=== PATIENT | female | born 1950 | race African-American/Black ===

== ENCOUNTER 2016-04-20 16:36 | Emergency (ER) | payer OTHER, MEDICAID ==
[~2016-04-20] VITALS: Ht 165.1 cm; Wt 50.0 kg
[~2016-04-20 16:36] MED LIST: ASPI1TAB69 PO; ATOR40TA16 PO; CARV12.52 PO; D32000TA PO; ERYT250C12 PO; ESTR42.5V PV; FERR325T PO; GLIM2TAB PO; GLUCOMTESTSTRIPS SQ; HYDR-3534 PO; LANTUS2P SQ; LYRI150C PO; ONETKIT10 SQ; ONETMIS7 SQ/IV; PANT40TA3 PO; PERI8.6T PO
[2016-04-20 16:37] VITALS: BP 198/89; PULSE 84; RESP 16; TEMP 98.3; O2SAT 95
[2016-04-20] MEDS ORDERED: SODIUM CHLOR 0.9% 1000 ML INJ 1,000 ML IV SCH (17:25)
--- NOTE | 2016-04-20 17:27 | PD ---
HPI Chief Complaint: Abdominal Pain Time Seen by Provider: 17:20 Travel History International Travel<30 days: No Contact w/Intl Traveler<30days: No Traveled to known affect area: No History of Present Illness HPI This is a 65-year-old female who has a history of gastroparesis and ulcers who presents to the emergency department with intermittent epigastric pain, sharp, burning, that's been worse today associated with some nausea and a feeling like she has to throw up but can't. She denies any diarrhea or constipation, denies any fevers and chills, and says her symptoms have been going on for a while but are worse today. She wasn't sure if her ulcers were flaring upper this was her gastroparesis. She says she takes erythromycin for her gastroparesis but has not been helping. PFSH Past Medical History Hx Anticoagulant Therapy: Yes Cardiac Catheterization: Yes (STENTS X 31 MARCH 2010) Cardiovascular Problems: Yes High Cholesterol: Yes Cerebrovascular Accident: Yes Diabetes: Yes Diminished Hearing: No Hypertension: Yes Myocardial Infarction: Yes (2010) Menopausal: Yes Past Surgical History Body Medical Devices: CORONARY STENTS X 2 Cardiac Surgery: Yes (2 stents) Coronary Stent: Yes Eye Surgery: Yes (BILAT CATARACT) Social History Alcohol Use: No Tobacco Use: Yes (4 CIG DAILY) Substance Use: No Allergies-Medications (Allergen,Severity, Reaction): Coded Allergies: Albiglutide (Verified Allergy, Severe, SICK TO STOMACH, 04/10/16) Insulins (Verified Allergy, Severe, 04/10/16) HYPOGLYCEMIA WITH NOVOLOG, PLEASE AVOID Cipro (Verified Allergy, Intermediate, RASH, 04/10/16) Metformin (Verified Adverse Reaction, Severe, N/V, 04/10/16) Lisinopril (Verified Adverse Reaction, Unknown, COUGH, 04/10/16) Reported Meds & Prescriptions Reported Meds & Active Scripts Active Erythromycin (Erythromycin Base) 250 Mg Cap 250 Mg PO TIDAC Glimepiride 2 Mg Tab 2 Mg PO BIDAC Lantus Inj (Insulin Glargine) 1,000 Unit/10 Ml Vial 10 Units SQ BID Carvedilol 12.5 Mg Tab 12.5 Mg PO BID Lyrica (Pregabalin) 150 Mg Cap 150 Mg PO HS Yue-Colace (Sennosides-Docusate Sodium) 8.6-50 Mg Tab 1 Tab PO BID Pantoprazole (Pantoprazole Sodium) 40 Mg Tab 40 Mg PO BID Ferrous Sulfate 325 Mg Tab 325 Mg PO BID Aspirin 81 Mg Tabdr 81 Mg PO DAILY Lortab (Hydrocodone-Acetaminophen) 7.5-325 Mg Tab 1 Tab PO Q6H PRN Reported Vitamin D3 (Cholecalciferol) 5,000 Unit Cap 5,000 Units PO WEEKLY Estrace Vaginal (Estradiol) 0.01% Cream 1 Appl PV HS Review of Systems Except as stated in HPI: all other systems reviewed are Neg Physical Exam Narrative GENERAL: Well-nourished, well-developed patient. SKIN: Warm and dry. HEAD: Normocephalic. EYES: No scleral icterus. No injection or drainage. NECK: Supple, trachea midline. CARDIOVASCULAR: Regular rate and rhythm without murmurs. RESPIRATORY: Breath sounds equal bilaterally. No accessory muscle use. GASTROINTESTINAL: Abdomen soft, tender to palpation in the epigastrium with no rebound or guarding. MUSCULOSKELETAL: No cyanosis, or edema. Data Data Last Documented VS Vital Signs Date Time Temp Pulse Resp B/P Pulse Ox O2 Delivery O2 Flow Rate FiO2 04/20/16 19:01 65 20 204/98 97 04/20/16 18:38 Room Air 04/20/16 17:58 2 04/20/16 16:37 98.3 Orders Complete Blood Count With Diff (04/20/16 17:25) Comprehensive Metabolic Panel (04/20/16 17:25) Lipase (04/20/16 17:25) Urinalysis - C+S If Indicated (04/20/16 17:25) Iv Access Insert/Monitor (04/20/16 17:25) Ecg Monitoring (04/20/16 17:25) Oximetry (04/20/16 17:25) Sodium Chlor 0.9% 1000 Ml Inj (Ns 1000 M (04/20/16 17:25) Sodium Chloride 0.9% Flush (Ns Flush) (04/20/16 17:30) Al-Mag Hy-Si 40-40-4 Mg/Ml Liq (Mag-Al P (04/20/16 17:30) Lidocaine 2% Viscous (Xylocaine 2% Visco (04/20/16 17:30) Igzcc-Iltssg-Xyxepb-Pb Liq ( Liq (04/20/16 17:30) Pantoprazole Inj (Protonix Inj) (04/20/16 17:30) Metoclopramide Inj (Reglan Inj) (04/20/16 17:30) Urine Culture (04/20/16 18:39) Carvedilol (Coreg) (04/20/16 19:15) Labs Laboratory Tests Test 04/20/16 04/20/16 18:00 18:39 White Blood Count 8.3 TH/MM3 Red Blood Count 5.05 MIL/MM3 Hemoglobin 13.9 GM/DL Hematocrit 42.5 % Mean Corpuscular Volume 84.2 FL Mean Corpuscular Hemoglobin 27.5 PG Mean Corpuscular Hemoglobin 32.6 % Concent Red Cell Distribution Width 15.1 % Platelet Count 237 TH/MM3 Mean Platelet Volume 9.9 FL Neutrophils (%) (Auto) 56.1 % Lymphocytes (%) (Auto) 33.9 % Monocytes (%) (Auto) 7.6 % Eosinophils (%) (Auto) 1.6 % Basophils (%) (Auto) 0.8 % Neutrophils # (Auto) 4.6 TH/MM3 Lymphocytes # (Auto) 2.8 TH/MM3 Monocytes # (Auto) 0.6 TH/MM3 Eosinophils # (Auto) 0.1 TH/MM3 Basophils # (Auto) 0.1 TH/MM3 CBC Comment DIFF FINAL Differential Comment Sodium Level 136 MEQ/L Potassium Level 4.1 MEQ/L Chloride Level 99 MEQ/L Carbon Dioxide Level 28.7 MEQ/L Anion Gap 8 MEQ/L Blood Urea Nitrogen 8 MG/DL Creatinine 0.83 MG/DL Estimat Glomerular Filtration 83 ML/MIN Rate Random Glucose 308 MG/DL Calcium Level 8.9 MG/DL Total Bilirubin 0.3 MG/DL Aspartate Amino Transf 14 U/L (AST/SGOT) Alanine Aminotransferase 12 U/L (ALT/SGPT) Alkaline Phosphatase 144 U/L Total Protein 7.7 GM/DL Albumin 3.3 GM/DL Lipase 65 U/L Urine Color YELLOW Urine Turbidity HAZY Urine pH 5.5 Urine Specific [place] 1.022 Urine Protein 30 mg/dL Urine Glucose (UA) 1000 mg/dL Urine Ketones 10 mg/dL Urine Occult Blood SMALL Urine Nitrite NEG Urine Bilirubin NEG Urine Urobilinogen 2.0 MG/DL Urine Leukocyte Esterase SMALL Urine RBC 1 /hpf Urine WBC 4 /hpf Urine Squamous Epithelial 2 /hpf Cells Urine Bacteria MOD /hpf Urine Hyaline Casts 3 /lpf Urine Mucus MANY /lpf Microscopic Urinalysis Comment CULTURE INDICATED MDM Medical Decision Making Medical Screen Exam Complete: Yes Emergency Medical Condition: Yes Interpretation(s) Afebrile, no tachycardia, hypertensive No leukocytosis Moderate hyperglycemia Urinalysis: Some ketones, moderate bacteria Differential Diagnosis Peptic ulcer disease, gastritis, pancreatitis, cholecystitis, cholelithiasis Narrative Course This is a 65-year-old female with a history of gastroparesis and peptic ulcer disease who presents to the emergency department with epigastric discomfort. Patient symptoms are consistent with peptic ulcer disease. She does not appear toxic and has no peritoneal signs. Labs were obtained which were reassuring. Patient feels much better after a GI cocktail and her symptoms have completely resolved. I think it's reasonable to add sucralfate to the patient's medication regimen.. Patient will be discharged home. Diagnosis Primary Impression: Gastric ulcer Qualified Code: K25.3 - Acute gastric ulcer without hemorrhage or perforation Patient Instructions: General Instructions Additional Instructions: If you develop severe or worsening abdominal pain, fever>100.4, persistent vomiting or inability to eat or drink return to the emergency department immediately. Follow up with your primary care physician in 1-2 days for a check-up. Med/Other Pt SpecificInfo: Prescription(s) given Scripts Sucralfate 1 Gm Tab1 Gm PO TID #90 TAB Ref 0 on empty stomach Prov:Gail Aviles MD 04/20/16 Disposition: 01 DISCHARGE HOME Condition: Stable Gail Aviles MD Apr 20, 2016 17:27
[2016-04-20] MEDS ORDERED: LIDOCAINE VISCOUS 2% SOLN 15 ML UDC SWISH-SWAL ONE (17:30)
[2016-04-20] MEDS ORDERED: SODIUM CHLORIDE 0.9% FLUSH 5 ML FLUSH IVF PRN (17:30)
[2016-04-20] MEDS ORDERED: ATROPINE/SCOPOLAM/HYOSCYAM/PB ELIXIR 10 ML CUP PO ONE (17:30)
[2016-04-20] MEDS ORDERED: PANTOPRAZOLE SODIUM 40 MG VIAL IV PUSH ONE (17:30)
[2016-04-20] MEDS ORDERED: ALUMINUM/MAGNESIUM/SIMETH 30 ML CUP PO ONE (17:30)
[2016-04-20] MEDS ORDERED: METOCLOPRAMIDE HCL 10 MG/2 ML VIAL IV PUSH ONE (17:30)
[2016-04-20 17:58] VITALS: O2SAT 97
[2016-04-20] MEDS ORDERED: ESTR42.5V PV (18:05)
[2016-04-20 18:07] LABS: AUTOMATED NEUTROPHIL # 4.6 TH/MM3 (1.8-7.7); BASOPHIL # 0.1 TH/MM3 (0-0.2); BASOPHIL % 0.8 % (0.0-2.0); EOSINOPHIL # 0.1 TH/MM3 (0-0.4); EOSINOPHIL % 1.6 % (0.0-4.0); HEMATOCRIT 42.5 % (35.0-46.0); HEMO FLAGS DIFF FINAL; LYMPH % 33.9 % (9.0-44.0); LYMPHOCYTE # 2.8 TH/MM3 (1.0-4.8); MEAN CELL VOLUME 84.2 FL (80.0-100.0); MEAN CORPUSCULAR HEMOGLOBIN 27.5 PG (27.0-34.0); MEAN CORPUSCULAR HGB CONC 32.6 % (32.0-36.0); MONO % 7.6 % (0.0-8.0); NEUT % 56.1 % (16.0-70.0); PLATELET COUNT 237 TH/MM3 (150-450); RED BLOOD COUNT 5.05 MIL/MM3 (4.00-5.30); RED CELL DISTRIBUTION WIDTH 15.1 % (11.6-17.2); WHITE BLOOD COUNT 8.3 TH/MM3 (4.0-11.0)
[2016-04-20] MEDS ORDERED: CHOL5000 PO (18:08)
[2016-04-20 18:38] VITALS: BP 208/88; PULSE 80; RESP 18; O2SAT 100
[2016-04-20 18:40] LABS: ANION GAP 8 MEQ/L (5-15); AST (GOT) 14 U/L (15-37); BICARBONATE 28.7 MEQ/L (21.0-32.0); BLOOD UREA NITROGEN 8 MG/DL (7-18); CHLORIDE 99 MEQ/L (98-107); GLOMERULAR FILTRATION RATE 83 ML/MIN (>89); POTASSIUM 4.1 MEQ/L (3.5-5.1); SODIUM (NA) 136 MEQ/L (136-145)
[2016-04-20 18:52] LABS: BACTERIA, URINE MOD /hpf; BLOOD, URINE SMALL (NEG); COMMENT (UR) CULTURE INDICATED; CULTURE IF INDICATED CULTURE INDICATED; GLUCOSE,URINE 1000 mg/dL (NEG); HYALINE CAST, URINE 3 /lpf (RARE); KETONE, URINE 10 mg/dL (NEG); MUCUS URINE MANY /lpf (OCC); NITRITE,URINE NEG (NEG); PH, URINE 5.5 (5.0-8.5); SQUAMOUS EPITHELIAL CELL URINE 2 /hpf (0-5); URINE COLOR YELLOW (YELLW/STRAW)
[2016-04-20 18:55] LABS: ALKALINE PHOSPHATASE 144 U/L (45-117); ALT (GPT) 12 U/L (10-53); TOTAL BILIRUBIN ADULT 0.3 MG/DL (0.2-1.0)
[2016-04-20 19:01] VITALS: BP 204/98; PULSE 65; RESP 20; O2SAT 97
[2016-04-20] MEDS ORDERED: CARVEDILOL 12.5 MG TAB PO ONE (19:15)
[2016-04-20] MEDS ORDERED: SUCR1TAB PO (19:17)
[2016-04-20 19:58] VITALS: BP 193/98
[2016-04-24] MEDS ORDERED: HYDR-3534 PO (11:10)
[2016-04-24] MEDS ORDERED: SUCR1TAB PO (11:10)
[2016-04-24] MEDS ORDERED: MAG-LIQ2 PO (11:11)
[2016-06-17] MEDS ORDERED: BACT800T5 PO (09:23)
[2016-06-25] MEDS ORDERED: MACR100C2 PO (11:30)
[2016-07-29] MEDS ORDERED: LYRI150C PO (09:11)
[2016-07-29] MEDS ORDERED: CHOL5000 PO (09:20)
== END 2016-04-20 20:00 | disposition home or self-care (01) ==
LOC: NEPE 16:36
DX: K25.3 Acute gastric ulcer without hemorrhage or perforation (principal); K31.84 Gastroparesis; B96.20 Unspecified Escherichia coli [E. coli] as the cause of diseases classified elsewhere; E78.00 Pure hypercholesterolemia, unspecified; E11.9 Type 2 diabetes mellitus without complications; I10 Essential (primary) hypertension; I25.2 Old myocardial infarction; F17.210 Nicotine dependence, cigarettes, uncomplicated; Z95.5 Presence of coronary angioplasty implant and graft; Z79.01 Long term (current) use of anticoagulants
CPT/HCPCS: 80053; 81001; 83690; 85025; 87077; 87086; 87186; 96361; 96374; 96375; 99284; C9113; J2765; J7030